=== PATIENT | male | born 1970 | race Caucasian/White ===

== ENCOUNTER 2021-02-28 08:55 | Outpatient (CLI) | payer SELFPAY ==
--- NOTE | 2021-02-28 08:45 | US_ITS ---
WS: [id number] RIGHT UPPER QUADRANT ULTRASOUND HISTORY: Hep C COMPARISON: None available. Liver: 14.1 cm in length. Liver is normal size. There is very slight early irregularity along the sup erior liver surface greatest involving the LEFT lobe. No mass or bile duct dilatation. Gallbladder: Normally distended gallbladder with no stones or wall thickening. CBD: 0.3 cm Pancreas: Partially visualized pancreas. Right kidney: 13.3 cm in length. Normal size and echogenicity. No hydronephrosis or mass. Aorta and IVC: Unremarkable abdominal aorta and IVC. No ascites. US/US liver [id number] IMPRESSION: 1. Very slight nodularity along the liver surface. Early changes of cirrhosis are likely. 2. No hepatic mass. 3. Normal gallbladder.
== END 2021-02-28 08:56 | disposition home or self-care (01) ==
LOC: RAD 08:56
PROVIDERS: Visit Provider Internal Medicine
DX: B18.2 Chronic viral hepatitis C (principal)
CPT/HCPCS: 76705

== ENCOUNTER → 2023-05-31 10:19 | Outpatient (BNVA) | payer MEDICAID, SELFPAY | PROVIDERS: PCP Family Medicine; Visit Provider Podiatrist Foot & Ankle Surgery | DX: M21.41 Flat foot [pes planus] (acquired), right foot; M21.42 Flat foot [pes planus] (acquired), left foot | CPT/HCPCS: 73630 ==

== ENCOUNTER → 2023-08-09 08:54 | Outpatient (BNVA) | payer MEDICAID, SELFPAY | PROVIDERS: PCP Family Medicine; Visit Provider Podiatrist Foot & Ankle Surgery | DX: M21.41 Flat foot [pes planus] (acquired), right foot; M21.42 Flat foot [pes planus] (acquired), left foot; S93.622A Sprain of tarsometatarsal ligament of left foot, initial encounter; W22.8XXA Striking against or struck by other objects, initial encounter | CPT/HCPCS: 73630 ==

== ENCOUNTER → 2023-11-24 08:34 | Outpatient (BNVA) | payer MEDICAID, SELFPAY | PROVIDERS: Visit Provider Podiatrist Foot & Ankle Surgery | DX: M10.072 Idiopathic gout, left ankle and foot | CPT/HCPCS: 73630 ==